=== PATIENT | male | born 1960 ===

== ENCOUNTER 2022-07-19 09:36 | Day surgery (SDC) | payer OTHER ==
[2022-07-19] MEDS ORDERED: KETO10TA2 PO (13:03)
[2022-07-19] MEDS ORDERED: MIRALAX17 GM PO (13:03)
[2022-07-19] MEDS ORDERED: TYLENOL ARTHRI650 MG PO (13:03)
[2022-07-19] MEDS ORDERED: TRAMADOL HCL50 MG PO (13:03)
== END 2022-07-19 19:30 | disposition home or self-care (01) ==
LOC: CIR.AMB 09:36
PROVIDERS: ATTEND Surgery
DX: K40.90 Unilateral inguinal hernia, without obstruction or gangrene, not specified as recurrent (principal); K42.9 Umbilical hernia without obstruction or gangrene; F17.210 Nicotine dependence, cigarettes, uncomplicated; Z20.822 Contact with and (suspected) exposure to COVID-19